=== PATIENT | female | born 1945 | race Caucasian/White ===

== ENCOUNTER → 2016-10-20 | Outpatient (CLI) | payer MEDICARE ==
[~2016-10-20] MED LIST: ALBU1.25 NEB; ALBU8.5H3 INH; AMLO5TAB2 PO; ASPI-515 PO; ATOR10TA9 PO; ATOR40TA78 PO; CA C1TAB60 PO; CALC-192 PO; CARB200T13 PO; CARB200T4 PO; CHOL100014 PO; CHOL2000 PO; FEXO1TAB25 PO; FEXO1TAB29 PO; FLUT12HF2 INH; FLUT15.88 NAS; HYDR12.53 PO; IPRA0.2S35 INH; LOSA50TA6 PO; MELA10TA3 PO; MELA5TAB19 PO; MONT10TA9 PO; NAPR220C PO; NAPR500T3 PO; NITR0.4T SL; NORT10CA PO; OMEP-110 PO; RALO60TA12 PO; REGADENOSON 0.4 MG/5 ML SYRINGE ONE; SENN1TAB67 PO; TICA90TA PO; TIZA4CAP PO; VALE500C PO
== END | disposition home or self-care (01) ==
LOC: CFH 07:41
PROVIDERS: ATTEND Internal Medicine Cardiovascular Disease
DX: I25.10 Atherosclerotic heart disease of native coronary artery without angina pectoris (principal); Z98.61 Coronary angioplasty status
CPT/HCPCS: 78452; 93017; A9502; J2785